=== PATIENT | male | born 1980 | race African-American/Black ===

== ENCOUNTER 2018-12-17 02:06 | Emergency (ER) | payer SELFPAY ==
[2018-12-17 02:14] VITALS: BP 153/94; PULSE 88; TEMP 98; BMI 31.4
--- NOTE | 2018-12-17 02:31 | PDOC ---
Attending Attestation - Resident Resident Name: Loly Delaney - ED Attending Attestation I have performed the following: I have examined & evaluated the patient, The case was reviewed & discussed with the resident, I agree w/resident's findings & plan - HPI HPI: 12/17/18 04:05 38-year-old male status post pitbull attack with Bites to bilateral hands and forearms. - Physicial Exam PE: 12/17/18 04:05 Agree with resident's exam - Medical Decision Making 12/17/18 04:06 38-year-old male status post pit bull bite to bilateral hands and forearm X-rays of the right hand show no obvious foreign body or fracture The wounds copiously cleansed Single gaping wound to the right palmar region loosely approximated Tetanus and IV Unasyn given in the emergency department Patient will be discharged on Augmentin with hand and wound follow-up
[2018-12-17] MEDS ORDERED: morphine CARPU-JECT 4 MG/1 ML DISP.SYRIN IVPUSH ONE ×2 (02:53→06:32)
[2018-12-17] MEDS ORDERED: morphine SULFATE 4 MG/ML VIAL ONE (02:53)
--- NOTE | 2018-12-17 02:53 | PDOC ---
History of Present Illness - General Chief Complaint: Bite Stated Complaint: INJURY Time Seen by Provider: 12/17/18 02:23 History Source: Patient - History of Present Illness Initial Comments: 12/17/18 02:49 The patient is a 38 year old male with a PMH of Anxiety and Depression who presents to our ED c/o multiple dog bites on his upper extremities. Patient states he was first bitten by the dog on his RUE yesterday afternoon while playing with the dog. He was later bit on his R hand when he was sleeping and tried to swat the dog away. States the dog, a pit bull, belongs to his girlfriend and he believes the dog has not received it's core vaccines. No previous h/o rabies IVIG or vaccine. Cannot recall the date of his last tetanus. NKDA Past History - Past Medical History Allergies/Adverse Reactions: Allergies Allergy/AdvReac Type Severity Reaction Status Date / Time No Known Allergies Allergy Verified 12/17/18 02:18 Home Medications: Ambulatory Orders Albuterol Sulfate Inhaler - [Ventolin Hfa Inhaler -] 1 - 2 inh PO QID PRN Amox-Tr/K Cl [Augmentin - 875Mg Tablet] 1 tab PO BID #28 tablet 12/17/18 Mirtazapine [Remeron -] 30 mg PO DAILY 12/17/18 Risperidone [Risperdal] 1 mg PO DAILY 12/17/18 Asthma: Yes COPD: No - Suicide/Smoking/Psychosocial Hx Smoking History: Never smoked Have you smoked in the past 12 months: Yes Number of Cigarettes Smoked Daily: 3 'Breaking Loose' booklet given: 12/10/14 Hx Alcohol Use: No Substance Use Type: None Review of Systems - Review of Systems Constitutional: No: Chills, Fever HEENTM: No: Recent change in vision, Throat Pain Respiratory: No: Cough, Shortness of Breath Cardiac (ROS): No: Chest Pain, Lightheadedness, Palpitations ABD/GI: No: Constipated, Diarrhea, Nausea, Vomiting *Physical Exam - Vital Signs Last Vital Signs Temp Pulse Resp BP Pulse Ox 98.0 F 88 18 153/94 100 12/17/18 02:10 12/17/18 02:10 12/17/18 02:10 12/17/18 02:10 12/17/18 02:10 - Physical Exam General Appearance: Yes: Nourished, Other (smoke odor on clothes) HEENT: positive: Normal Voice, Hearing Grossly Normal Neck: positive: Trachea midline, Supple Extremity: positive: Normal Capillary Refill, Normal Inspection, Other ( multiple puncture wounds on B/L UE; 3 cm R palmar bite wound with fat exposure) Integumentary: positive: Normal Color, Dry, Warm, Other Neurologic: positive: Fully Oriented, Alert Moderate Sedation - Procedure Monitoring Vital Signs: Procedure Monitoring Vital Signs Temperature 98.0 F 12/17/18 02:10 Pulse Rate 88 12/17/18 02:10 Respiratory Rate 18 12/17/18 02:10 Blood Pressure 153/94 12/17/18 02:10 O2 Sat by Pulse Oximetry (%) 100 12/17/18 02:10 Medical Decision Making - Medical Decision Making 12/17/18 06:33 38 year old male s/p multiple bites and puncture wound to B/L UE. Family canine w/o core vaccinations. VS unremarkable. Will obtain R hand XR to r/o foriegn body/fracture. Wounds to be closed by primary intention following tap water irrigation. XR shows no fracture/foreign body. Patient to be discharged home with hand surgery consult, Augmentin prophylaxis and return schedule for wound and rabies check. I discussed the physical exam findings, ancillary test results and final diagnoses with the patient. I answered all of the patient's questions. The patient was satisfied with the care received and felt comfortable with the discharge plan and treatment plan. The patient will return to the Emergency Department with any new, persistent or worsening symptoms. *DC/Admit/Observation/Transfer Diagnosis at time of Disposition: Dog bite, Suspected rabies - Discharge Dispostion Disposition: HOME Condition at time of disposition: Good Decision to Admit order: No - Prescriptions Prescriptions: Amox-Tr/K Cl [Augmentin - 875Mg Tablet] 1 tab PO BID #28 tablet - Referrals Referrals: Evangelista Taylor MD [Staff Physician] - - Patient Instructions Printed Discharge Instructions: DI for Animal Bites, DI for Rabies Vaccine Additional Instructions: Return to the Emergency Department on November for evaluation of your wound. In addition, you must return to the Emergency Department in 01/02/14 days to complete the entire rabies course. The dates are as follows: Thursday December 20, 2018 Monday December 24, 2018 Monday December 31, 2018 Saturday January 05, 2019 We have provided a referral to a hand surgeon, Dr. Taylor, please follow up in the next 3 days. The surgeon can give you additional time off work as required. You can use Tylenol (up to 4000 mg) alternating with Motrin (up to 3200 mg) every 6 hours Return to the Emergency Department for any new/worsening/concerning symptoms. - Post Discharge Activity Forms/Work/School Notes: Back to Work
[2018-12-17] MEDS ORDERED: RABIES VACCINE (PCEC)/PF 2.5 UNIT/VIAL IM ONE (02:57)
[2018-12-17] MEDS ORDERED: RABIES IMMUNE GLOBULIN 300 UNITS/1 ML VIAL IM ONE (03:10)
[2018-12-17] MEDS ORDERED: AMPICILLIN NA/SULBACTAM NA 3 GM in SODIUM CHLORIDE 100 ML IVPB ONE (03:56)
[2018-12-17] MEDS ORDERED: DIPHTH,PERTUSS(ACELL),TET 0.5 ML DISP.SYRIN IM ONE ×2 (04:05→04:19)
[2018-12-17] MEDS ORDERED: LIDOCAINE HCL 2% (20ML MULTI-DOSE VIAL) NR SCH (04:15)
[2018-12-17] MEDS ORDERED: LIDOCAINE HCL 2% (20ML MULTI-DOSE VIAL) NR ONE (04:18)
== END 2018-12-17 05:35 | disposition home or self-care (01) ==
LOC: JER 02:06
PROC: 3E0234Z Introduction of Serum, Toxoid and Vaccine into Muscle, Percutaneous Approach (ICD-10-PCS; principal; 2018-12-17)
PROC: 3E0234Z Introduction of Serum, Toxoid and Vaccine into Muscle, Percutaneous Approach (ICD-10-PCS; 2018-12-17)
PROC: 3E0234Z Introduction of Serum, Toxoid and Vaccine into Muscle, Percutaneous Approach (ICD-10-PCS; 2018-12-17)
PROC: 3E03329 Introduction of Other Anti-infective into Peripheral Vein, Percutaneous Approach (ICD-10-PCS; 2018-12-17)
DX: S41.151A Open bite of right upper arm, initial encounter (principal); S61.451A Open bite of right hand, initial encounter; W54.0XXA Bitten by dog, initial encounter; Y93.K9 Activity, other involving animal care; Y92.038 Other place in apartment as the place of occurrence of the external cause; Y99.8 Other external cause status
CPT/HCPCS: 73130-TC-RT-FY; 90375; 90715; 99282-25

== ENCOUNTER 2018-12-20 00:37 | Emergency (ER) | payer SELFPAY ==
[2018-12-20 01:06] VITALS: BP 136/79; PULSE 80; TEMP 97.6; BMI 25.0
--- NOTE | 2018-12-20 01:42 | PDOC ---
Suture Removal/Wound Check HPI - History of Present Illness Chief Complaint: Revisit,Wound Recheck Stated Complaint: INJURY,FOLLOW-UP Time Seen by Provider: 12/20/18 01:23 History Source: Yes: Patient Exam Limitations: Yes: Clinical Condition Treated at: [facility] Date of Last ED visit: 12/17/18 - Previous ED Treatment Type of procedure performed on last visit: Yes: Laceration Repair, Other (bite wound) Tetanus Immunization: Yes: Up to Date Antibiotics Prescribed: Yes Past History - Past Medical History Allergies/Adverse Reactions: Allergies Allergy/AdvReac Type Severity Reaction Status Date / Time No Known Allergies Allergy Verified 12/20/18 01:04 Home Medications: Ambulatory Orders Albuterol Sulfate Inhaler - [Ventolin Hfa Inhaler -] 1 - 2 inh PO QID PRN Amox-Tr/K Cl [Augmentin - 875Mg Tablet] 1 tab PO BID #28 tablet 12/17/18 Mirtazapine [Remeron -] 30 mg PO DAILY 12/17/18 Risperidone [Risperdal] 1 mg PO DAILY 12/17/18 Asthma: Yes COPD: No - Immunization History Immunization Up to Date: Yes - Suicide/Smoking/Psychosocial Hx Smoking History: Unknown if ever smoked Have you smoked in the past 12 months: No Number of Cigarettes Smoked Daily: 3 Information on smoking cessation initiated: No 'Breaking Loose' booklet given: 12/10/14 Hx Alcohol Use: No Drug/Substance Use Hx: No Substance Use Type: None Suture Removal/Wound Check PE - Physical Exam Laceration/Wound Check Symptoms: reports: Improved. denies: Fever, Redness, Discharge, Bleeding, Weakness Pain Intensity: 1 Current Severity Level: Mild Maximum Severity Level: Mild Location of Laceration/Wound: right: Hand *Review of Systems - Review of Systems Able to Perform ROS?: Yes Constitutional: Yes: Symptoms Reported. No: Fever, Weakness HEENTM: No: Symptoms Reported Respiratory: No: Symptoms reported Cardiac (ROS): No: Symptoms Reported ABD/GI: No: Nausea, Vomiting Musculoskeletal: Yes: Muscle Pain (over puncture wound). No: Muscle Weakness Integumentary: Yes: Other (puncture wound to right hand from og bit) All Other Systems: Reviewed and Negative *Physical Exam - Vital Signs Last Vital Signs Temp Pulse Resp BP Pulse Ox 97.6 F 80 18 136/79 99 12/20/18 01:04 12/20/18 01:04 12/20/18 01:04 12/20/18 01:04 12/20/18 01:04 - Physical Exam General Appearance: Yes: Nourished, Appropriately Dressed. No: Apparent Distress HEENT: positive: Normal ENT Inspection Neck: positive: Supple Respiratory/Chest: negative: Respiratory Distress, Accessory Muscle Use Cardiovascular: positive: Regular Rhythm, Regular Rate Integumentary: positive: Normal Color, Other (well healing 2 linear lacerations to palm of right hand from punture wound from dog bite. no erythema to woun, no evidence of wound infection) Moderate Sedation - Procedure Monitoring Vital Signs: Procedure Monitoring Vital Signs Temperature 97.6 F 12/20/18 01:04 Pulse Rate 80 12/20/18 01:04 Respiratory Rate 18 12/20/18 01:04 Blood Pressure 136/79 12/20/18 01:04 O2 Sat by Pulse Oximetry (%) 99 12/20/18 01:04 Medical Decision Making - Medical Decision Making 12/20/18 02:47 Patient present for wound check status post presented 3 days ago with puncture wound to right hand from a dog bite from the girlfriend's dog. Patient reported dog was taken to nursing home where the dog was tested and found not to have rabies. Patient has first rabies vaccine during her visit 3 days ago but does not knee subsequent vaccine due to dog pain tested and found not to have rabies. Patient did not pick pack worker prescribed Augmentin antibiotics I last visit because he lost his paperwork and didn't know he to go pick pack worker her medication without a paperwork. Wound with 2 linear lacerations to the palmar aspect of right hand healing well with no evidence of wound infection. Wound cleaned with Betadine and bacitracin applied to wound. Right hand wrapped with stretch gauze. Patient educated on home wound care. Patient advised to follow-up with referring hand surgeon and pick pack worker prescribed Augmentin antibiotics and finish medication. Patient voiced understanding and agrees to plan *DC/Admit/Observation/Transfer Diagnosis at time of Disposition: Dog bite Qualifiers: Encounter type: subsequent encounter Qualified Code(s): W54.0XXD - Bitten by dog, subsequent encounter Puncture wound of right hand Qualifiers: Encounter type: subsequent encounter Foreign body presence: without foreign body Qualified Code(s): S61.431D - Puncture wound without foreign body of right hand, subsequent encounter - Discharge Dispostion Disposition: HOME Condition at time of disposition: Stable Decision to Admit order: No - Referrals Referrals: Evangelista Taylor MD [Staff Physician] - - Patient Instructions Printed Discharge Instructions: How to Care for a Domestic Animal Bite, DI for Puncture Wound Additional Instructions: pick pack worker prescribed Antibiotics and take it. Follow-up with referred hand surgeon - Post Discharge Activity
--- NOTE | 2018-12-20 01:51 | PDOC ---
*Physical Exam - Vital Signs Last Vital Signs Temp Pulse Resp BP Pulse Ox 97.6 F 80 18 136/79 99 12/20/18 01:04 12/20/18 01:04 12/20/18 01:04 12/20/18 01:04 12/20/18 01:04 Medical Decision Making - Medical Decision Making 12/20/18 01:51 Pt seen by the Advanced Practice Provider under my direct supervision Ancillary studies reviewed I agree with plan as outlined by the Advanced Practice Provider JODY Glilis *DC/Admit/Observation/Transfer Diagnosis at time of Disposition: Dog bite Qualifiers: Encounter type: subsequent encounter Qualified Code(s): W54.0XXD - Bitten by dog, subsequent encounter Puncture wound of right hand Qualifiers: Encounter type: subsequent encounter Foreign body presence: without foreign body Qualified Code(s): S61.431D - Puncture wound without foreign body of right hand, subsequent encounter - Discharge Dispostion Disposition: HOME Condition at time of disposition: Stable - Referrals Referrals: Evangelista Taylor MD [Staff Physician] - - Patient Instructions Printed Discharge Instructions: How to Care for a Domestic Animal Bite, DI for Puncture Wound Additional Instructions: fruit or nut picker prescribed Antibiotics and take it. Follow-up with referred hand surgeon - Post Discharge Activity
== END 2018-12-20 01:51 | disposition home or self-care (01) ==
LOC: JER 00:37
DX: S61.431D Puncture wound without foreign body of right hand, subsequent encounter (principal); W54.0XXD Bitten by dog, subsequent encounter
CPT/HCPCS: 99282-25